=== PATIENT | male | born 1940 | race Caucasian/White ===

== ENCOUNTER 2022-12-10 16:35 | Inpatient (IN) | payer MEDICARE, BC, SELFPAY ==
[2022-12-10] VITALS (20 sets, daily range): BP systolic 128–162; BP diastolic 67–87; PULSE 70–93; RESP 15–31; TEMP 36.6; O2SAT 96–100; BMI 21.0; BMI 20.5
--- NOTE | 2022-12-10 16:45 | ED.GENADUL1 ---
Documented by User: Nedra Elizabeth 12/12/22 12:46 HPI - General Adult General Chief complaint: Weakness Stated complaint: WEAKNESS Time Seen by Provider: 12/10/22 16:41 Source: other Source information: MEDIC Mode of arrival: ambulance Limitations: altered mental status Limitations comment: pt unable to answer questions per medic this is pt's baseline History of Present Illness HPI narrative: patient has parkinson's and is not able to give adequate HPI or ROS. accompanied the patient and is the main historian She told me that the patient has been getting progressively weaker over the last few days. He has been eating and drinking a little less than normal the last two days. He had a mild cough as well that developed 2 days ago - no sputum production. No vomiting or diarrhea. She said that this morning he got up and had breakfast around 8 or 830am. he then went back to bed and slept until around 3pm. he went to use the toilet and was unable to stand and get off the toilet unassisted. No recent injury or fall. He has a scab on his right forehead that he picks at chronically, she told me. Related Data Home Medications Medication Instructions Recorded Confirmed aspirin 81 mg chewable tablet 81 mg PO DAILY 12/10/22 12/10/22 donepezil 10 mg tablet 10 mg PO DAILY 12/10/22 12/10/22 ferrous sulfate 325 mg (65 mg 325 mg PO DAILY 12/10/22 12/10/22 iron) tablet (Feosol) megestrol 40 mg tablet 100 mg PO DAILY 12/10/22 12/11/22 carbidopa ER 25 mg-levodopa 100 mg 2 tab PO QID 12/11/22 12/11/22 tablet,extended release entacapone 200 mg tablet 200 mg PO QID 12/11/22 12/11/22 Allergies Allergy/AdvReac Type Severity Reaction Status Date / Time Penicillins Allergy Intermediate Verified 12/10/22 17:06 [facility] Medical History (Updated 12/11/22 @ 16:41 by Shaikh Susanna MD) Surgical History (Updated 12/10/22 @ 21:59 by Abida Rivera RN) Family History (Updated 12/10/22 @ 22:00 by Abida Rivera RN) Mother Family history of hypertension Social History (Updated 12/10/22 @ 22:01 by Abida Rivera RN) Within the past year, how often did you have a drink containing alcohol: never Score interpretation: A score less than 4 is consistent with normal alcohol consumption. Smoking status: Former smoker Non-prescribed substance use: denies use Are you now , , , , never or living with a partner: Gender Identity: male Exam Narrative Exam Narrative: Nurses notes and vital signs reviewed and patient is not hypoxic. afebrile General: Well-appearing and in no apparent distress. Skin: Warm, dry, no pallor noted. No rash. Head: Normocephalic, atraumatic. He has a forehead scab and some surrounding scarring but no erythema or sign of infection. Neck: Supple, non-tender. Eye: Pupils are equal, round and EOMI. No scleral icterus. Ears, Nose, Mouth, and Throat: TM are clear, no nasal mucosal hypertrophy. Oral mucosa is dry, no posterior oropharynx erythema, uvula is mid-line Cardiovascular: Regular Rate and Rhythm without murmur, gallop or rub. Respiratory: No accessory muscle use or respiratory distress. Lungs are clear to auscultation, no wheezing, rales or rhonchi Chest Wall: no tenderness, crepitus or subcutaneous emphysema Back: No midline thoracic or lumbar vertebral tenderness. No CVA tenderness Musculoskeletal: no calf or popliteal tenderness, no lower extremity edema/swelling. moves extremities weakly GI: Abdomen is soft, non-distended. Normal bowel sounds. No masses appreciated. No tenderness to palpation. No rebound, guarding, or rigidity noted. Neurological: Awake and alert but I cannot understand what he is saying as he quietly whispers. No cranial nerve dysfunction observed. No truncal ataxia but he quickly lays back on the bed once he is sat up. Moves all extremities but does not follow commands. Sensation intact. Psychiatric: Cooperative and interactive. Normal mood and affect. Constitutional Vital Signs, click to edit/add: Last Vital Signs Temp 98.1 F 12/12/22 04:54 Pulse 64 12/12/22 12:05 Resp 20 12/12/22 04:54 BP 156/80 H 12/12/22 09:37 Pulse Ox 94 L 12/12/22 04:54 O2 Del Method Room Air 12/12/22 04:54 Course Vital Signs Vital signs: Vital Signs Pulse Rate 83 12/10/22 16:36 Respiratory Rate 18 12/10/22 16:36 Blood Pressure 152/69 H 12/10/22 16:36 Pulse Oximetry 96 12/10/22 16:36 Oxygen Delivery Method Room Air 12/10/22 16:36 Temperature 98.1 F 12/12/22 04:54 Pulse Rate 64 12/12/22 12:05 Respiratory Rate 20 12/12/22 04:54 Blood Pressure 156/80 H 12/12/22 09:37 Pulse Oximetry 94 L 12/12/22 04:54 Oxygen Delivery Method Room Air 12/12/22 04:54 Medical Decision Making MDM Narrative Medical decision making narrative: Patient was placed on manager monitoring and EKG obtained. Blood drawn and sent for evaluation. urine obtained and sent for testing. CXR obtained. Questionable opacity and loops of bowel in the way of the left hemidaphragm. CT recommended by radiologist and was ordered. Patient signed out to Dr Burk to follow up with Ct result and determine disposition. Lab Data Lab results reviewed: Yes I reviewed the patient's lab results Labs: Lab Results 12/10/22 12/10/22 Range/Units 17:15 17:40 WBC 5.8 (4.0-11.0) 10^3/uL RBC 4.25 L (4.70-6.10) 10^6/uL Hgb 13.2 L (14.0-18.0) g/dL Hct 40.9 L (42.0-54.0) % MCV 96.2 H (80.0-94.0) fL MCH 31.1 (25.9-34.0) pg MCHC 32.3 (29.9-35.2) g/dL RDW 13.2 (11.0-15.0) % Plt Count 180 (150-450) 10^3/uL MPV 9.7 (9.5-13.5) fL Neut % (Auto) 76.0 H (43.0-75.0) % Lymph % (Auto) 12.0 L (20.5-60.0) % [place] % (Auto) 9.6 (1.7-12.0) % Eos % (Auto) 1.4 (0.9-7.0) % Baso % (Auto) 0.7 (0.2-2.0) % Neut # (Auto) 4.4 (1.4-6.5) 10^3/uL Lymph # (Auto) 0.7 L (1.2-3.8) 10^3/uL [place] # (Auto) 0.6 (0.3-0.8) 10^3/uL Eos # (Auto) 0.1 (0.0-0.7) 10^3/uL Baso # (Auto) 0.0 (0.0-0.1) 10^3/uL Abs Immat Gran (auto) 0.02 (0.00-0.03) 10^3/uL Imm/Tot Granulo (auto) 0.3 (0.0-0.5) % Sodium 140 (136-145) mmol/L Potassium 3.9 (3.5-5.1) mmol/L Chloride 105 (98-107) mmol/L Carbon Dioxide 29.9 (21.0-32.0) mmol/L Anion Gap 9.0 BUN 45.0 H (7.0-18.0) mg/dL Creatinine 1.15 (0.70-1.30) mg/dL Est GFR ( Amer) >60 (>=60) Est GFR (Non-Af Amer) >60 (>=60) BUN/Creatinine Ratio 39.1 Glucose 122 H (74-106) mg/dL Calcium 8.9 (8.5-10.1) mg/dL Total Bilirubin 0.8 (0.2-1.0) mg/dL AST 10 L (15-37) U/L ALT 9 L (16-63) U/L Alkaline Phosphatase 62 (46-116) U/L Troponin I High Sens 8.9 (4.0-76.1) pg/mL Total Protein 6.9 (6.4-8.2) g/dL Albumin 3.8 (3.4-5.0) g/dL Globulin 3.1 g/dL Albumin/Globulin Ratio 1.2 Urine Color Yellow (YELLOW) Urine Clarity Clear (CLEAR) Urine pH 5.5 (5.0-9.0) Ur Specific [place] >=1.030 A (1.005-1.025) Urine Protein 100 A (NEG/TRACE) mg/dL Urine Glucose (UA) Negative (NEGATIVE) mg/dL Urine Ketones 15 A (NEGATIVE) mg/dL Urine Occult Blood Negative (NEGATIVE) Urine Nitrite Negative (NEGATIVE) Urine Bilirubin Negative (NEGATIVE) Urine Urobilinogen 1.0 (0.2-1.0) EU/dL Ur Leukocyte Esterase Negative (NEGATIVE) Urine RBC 2-5 A (0-2) #/HPF Urine WBC None seen (NONE SEEN) #/HPF Ur Squamous Epith Cells Rare (NONE/RARE) #/LPF Urine Crystals None seen (None Seen) #/HPF Urine Bacteria Trace A (NONE SEEN) #/HPF Urine Casts Seen A (NONE SEEN) #/LPF Hyaline Casts Rare Urine Mucus Trace A (NONE SEEN) Ur Culture Indicated? No Imaging Data Chest x-ray: Radiologist's impression: Patient Name: OLIMPIA RYDER MRN: [id number] date: 1940 Sex: M Assigned Patient Location: ER Current Patient Location: ER Accession/Order Number: [id number] Exam Date: 12/10/2022 17:48 Report Date: 12/10/2022 18:51 At the request of: NEDRA ELIZABETH Procedure: XR chest 1V CXR HISTORY: Patient unable to get off toilet. Patient weak and not eating. 82-year-old male COMPARISON: Chest x-ray 06/26/2022 TECHNIQUE: 1 view chest submitted for review. FINDINGS: There is eventration of the left hemidiaphragm approximated by bowel which is incompletely imaged. Underlying opacity in the right lung not excluded. The cardiac silhouette measures within normal. Pulmonary vascularity is unremarkable. Osseous structures and a straight degenerative change with osteopenia.. IMPRESSION: 1. Eventration of the left hemidiaphragm approximated by bowel which is incompletely imaged. 2. Underlying opacity in the right lung not excluded. Please correlate with patient's medical history. CT scan of the chest may help better delineate. Electronically authenticated by: CASSI GREER Date: 12/10/2022 18:51 ECG Data Attestation: I personally reviewed and interpreted this ECG as follows: Interpretation: EKG interpretation: Emergency Department physician interpretation. Normal sinus rhythm at 84bpm. Normal axis, normal intervals and non-specific T wave changes without ST segment elevation or depression. Discharge Plan Discharge Chief Complaint: Weakness Clinical Impression: Generalized muscle weakness Pulmonary embolism Qualifiers: Pulmonary embolism type: single subsegmental (without acute cor pulmonale) Qualified Code(s): I26.93 - Single subsegmental pulmonary embolism without acute cor pulmonale Patient Disposition: Admitted As Inpatient Time of Disposition Decision: 21:04 Condition: Good Discharge Date/Time: 12/10/22 21:49 Documented by User: Sue Burk MD 12/11/22 00:45 HPI - General Adult General Chief complaint: Weakness Stated complaint: WEAKNESS Time Seen by Provider: 12/10/22 16:41 Related Data Home Medications Medication Instructions Recorded Confirmed aspirin 81 mg chewable tablet 81 mg PO DAILY 12/10/22 12/10/22 donepezil 10 mg tablet 10 mg PO DAILY 12/10/22 12/10/22 ferrous sulfate 325 mg (65 mg 325 mg PO DAILY 12/10/22 12/10/22 iron) tablet (Feosol) megestrol 40 mg tablet 100 mg PO DAILY 12/10/22 12/11/22 carbidopa ER 25 mg-levodopa 100 mg 2 tab PO QID 12/11/22 12/11/22 tablet,extended release entacapone 200 mg tablet 200 mg PO QID 12/11/22 12/11/22 Allergies Allergy/AdvReac Type Severity Reaction Status Date / Time Penicillins Allergy Intermediate Verified 12/10/22 17:06 [facility] Medical History (Updated 12/11/22 @ 16:41 by Shaikh Susanna MD) Surgical History (Updated 12/10/22 @ 21:59 by Abida Rivera RN) Family History (Updated 12/10/22 @ 22:00 by Abida Rivera, JOSI) Mother Family history of hypertension Social History (Updated 12/10/22 @ 22:01 by Abida Rivera, JOSI) Within the past year, how often did you have a drink containing alcohol: never Score interpretation: A score less than 4 is consistent with normal alcohol consumption. Smoking status: Former smoker Non-prescribed substance use: denies use Are you now , , , , never or living with a partner: Gender Identity: male Exam Constitutional Vital Signs, click to edit/add: Last Vital Signs Temp 98.1 F 12/12/22 04:54 Pulse 64 12/12/22 12:05 Resp 20 12/12/22 04:54 BP 156/80 H 12/12/22 09:37 Pulse Ox 94 L 12/12/22 04:54 O2 Del Method Room Air 12/12/22 04:54 Course Vital Signs Vital signs: Vital Signs Pulse Rate 83 12/10/22 16:36 Respiratory Rate 18 12/10/22 16:36 Blood Pressure 152/69 H 12/10/22 16:36 Pulse Oximetry 96 12/10/22 16:36 Oxygen Delivery Method Room Air 12/10/22 16:36 Temperature 98.1 F 12/12/22 04:54 Pulse Rate 64 12/12/22 12:05 Respiratory Rate 20 12/12/22 04:54 Blood Pressure 156/80 H 12/12/22 09:37 Pulse Oximetry 94 L 12/12/22 04:54 Oxygen Delivery Method Room Air 12/12/22 04:54 Medical Decision Making MDM Narrative Medical decision making narrative: Patient was placed on manager monitoring and EKG obtained. Blood drawn and sent for evaluation. urine obtained and sent for testing. CXR obtained. Questionable opacity and loops of bowel in the way of the left hemidaphragm. CT recommended by radiologist and was ordered. Patient signed out to Dr Burk to follow up with Ct result and determine disposition. Dr Burk : The patient a CT angio showed that he have a right upper pulmonary embolism his kidney function is within normal and he will be started on Lovenox The patient case was discussed with Dr. Woody and she agrees with above plan and the patient be admitted for further management of his PE Lab Data Labs: Lab Results 12/10/22 12/10/22 Range/Units 17:15 17:40 WBC 5.8 (4.0-11.0) 10^3/uL RBC 4.25 L (4.70-6.10) 10^6/uL Hgb 13.2 L (14.0-18.0) g/dL Hct 40.9 L (42.0-54.0) % MCV 96.2 H (80.0-94.0) fL MCH 31.1 (25.9-34.0) pg MCHC 32.3 (29.9-35.2) g/dL RDW 13.2 (11.0-15.0) % Plt Count 180 (150-450) 10^3/uL MPV 9.7 (9.5-13.5) fL Neut % (Auto) 76.0 H (43.0-75.0) % Lymph % (Auto) 12.0 L (20.5-60.0) % [place] % (Auto) 9.6 (1.7-12.0) % Eos % (Auto) 1.4 (0.9-7.0) % Baso % (Auto) 0.7 (0.2-2.0) % Neut # (Auto) 4.4 (1.4-6.5) 10^3/uL Lymph # (Auto) 0.7 L (1.2-3.8) 10^3/uL [place] # (Auto) 0.6 (0.3-0.8) 10^3/uL Eos # (Auto) 0.1 (0.0-0.7) 10^3/uL Baso # (Auto) 0.0 (0.0-0.1) 10^3/uL Abs Immat Gran (auto) 0.02 (0.00-0.03) 10^3/uL Imm/Tot Granulo (auto) 0.3 (0.0-0.5) % Sodium 140 (136-145) mmol/L Potassium 3.9 (3.5-5.1) mmol/L Chloride 105 (98-107) mmol/L Carbon Dioxide 29.9 (21.0-32.0) mmol/L Anion Gap 9.0 BUN 45.0 H (7.0-18.0) mg/dL Creatinine 1.15 (0.70-1.30) mg/dL Est GFR ( Amer) >60 (>=60) Est GFR (Non-Af Amer) >60 (>=60) BUN/Creatinine Ratio 39.1 Glucose 122 H (74-106) mg/dL Calcium 8.9 (8.5-10.1) mg/dL Total Bilirubin 0.8 (0.2-1.0) mg/dL AST 10 L (15-37) U/L ALT 9 L (16-63) U/L Alkaline Phosphatase 62 (46-116) U/L Troponin I High Sens 8.9 (4.0-76.1) pg/mL Total Protein 6.9 (6.4-8.2) g/dL Albumin 3.8 (3.4-5.0) g/dL Globulin 3.1 g/dL Albumin/Globulin Ratio 1.2 Urine Color Yellow (YELLOW) Urine Clarity Clear (CLEAR) Urine pH 5.5 (5.0-9.0) Ur Specific [place] >=1.030 A (1.005-1.025) Urine Protein 100 A (NEG/TRACE) mg/dL Urine Glucose (UA) Negative (NEGATIVE) mg/dL Urine Ketones 15 A (NEGATIVE) mg/dL Urine Occult Blood Negative (NEGATIVE) Urine Nitrite Negative (NEGATIVE) Urine Bilirubin Negative (NEGATIVE) Urine Urobilinogen 1.0 (0.2-1.0) EU/dL Ur Leukocyte Esterase Negative (NEGATIVE) Urine RBC 2-5 A (0-2) #/HPF Urine WBC None seen (NONE SEEN) #/HPF Ur Squamous Epith Cells Rare (NONE/RARE) #/LPF Urine Crystals None seen (None Seen) #/HPF Urine Bacteria Trace A (NONE SEEN) #/HPF Urine Casts Seen A (NONE SEEN) #/LPF Hyaline Casts Rare Urine Mucus Trace A (NONE SEEN) Ur Culture Indicated? No Discharge Plan Discharge Chief Complaint: Weakness Clinical Impression: Generalized muscle weakness Pulmonary embolism Qualifiers: Pulmonary embolism type: single subsegmental (without acute cor pulmonale) Qualified Code(s): I26.93 - Single subsegmental pulmonary embolism without acute cor pulmonale Patient Disposition: Admitted As Inpatient Time of Disposition Decision: 21:04 Condition: Good Discharge Date/Time: 12/10/22 21:49
--- NOTE | 2022-12-10 16:50 | ECG_ITS ---
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
[2022-12-10] MEDS: 0.9 % SODIUM CHLORIDE 1,000 ML 999 ML IV (17:05)
--- NOTE | 2022-12-10 17:19 | PC.NURSE ---
Straight catheter successful, patient tolerated well, light yellow colored urine retrieved and sent to lab. at the bedside with knowledge of call button.
--- NOTE | 2022-12-10 17:23 | XR_ITS ---
The [address] [address] Patient Name: OLIMPIA RYDER MRN: [id number] date: 1940 Sex: M Assigned Patient Location: ER Current Patient Location: ER Accession/Order Number: [id number] Exam Date: 12/10/2022 17:48 Report Date: 12/10/2022 18:51 At the request of: NEDRA ELIZABETH Procedure: XR chest 1V CXR HISTORY: Patient unable to get off toilet. Patient weak and not eating. 82-year-old male COMPARISON: Chest x-ray 06/26/2022 TECHNIQUE: 1 view chest submitted for review. FINDINGS: There is eventration of the left hemidiaphragm approximated by bowel which is incompletely imaged. Underlying opacity in the right lung not excluded. The cardiac silhouette measures within normal. Pulmonary vascularity is unremarkable. Osseous structures and a straight degenerative change with osteopenia.. XR/XR chest 1V IMPRESSION: 1. Eventration of the left hemidiaphragm approximated by bowel which is incompletely imaged. 2. Underlying opacity in the right lung not excluded. Please correlate with patient's medical history. CT scan of the chest may help better delineate. Electronically authenticated by: CASSI GREER Date: 12/10/2022 18:51
[2022-12-10 17:28] LABS: Bilirubin Urine NEGATIVE (NEGATIVE); Blood Urine NEGATIVE (NEGATIVE); Clarity Urine CLEAR (CLEAR); Color Urine YELLOW (YELLOW); Glucose Urine UA NEGATIVE (NEGATIVE); Ketones Urine 15 mg/dL (NEGATIVE); Leukocyte Esterase Urine NEGATIVE (NEGATIVE); Nitrite Urine NEGATIVE (NEGATIVE); Protein Urine 100 mg/dL (NEG/TRACE); Specific Gravity Urine >=1.030 (1.005-1.025); pH Urine 5.5 (5.0-9.0)
[2022-12-10 17:31] LABS: Urine Microscopic Indicated YES
[2022-12-10 17:42] LABS: Bacteria Urine TRACE #/HPF (NONE SEEN); Mucus Urine TRACE (NONE SEEN); WBC Urine NONE SEEN #/HPF (NONE SEEN)
[2022-12-10 17:43] LABS: Cast Seen? SEEN #/LPF (NONE SEEN); Crystals Seen? None Seen #/HPF (None Seen); Hyaline Casts Urine RARE; Squamous Epithelial Cell Urine RARE #/LPF (NONE/RARE); Urine Culture Indicated NO
[2022-12-10 17:46] LABS: Basophils Percent Auto 0.7 % (0.2-2.0); Eosinophils Absolute Auto 0.1 10^3/uL (0.0-0.7); Eosinophils Percent Auto 1.4 % (0.9-7.0); Hematocrit 40.9 % (42.0-54.0); Hemoglobin 13.2 g/dL (14.0-18.0); Immature Granulocytes Abs Auto 0.02 10^3/uL (0.00-0.03); Immature Granulocytes Pct Auto 0.3 % (0.0-0.5); Lymphocytes Absolute Auto 0.7 10^3/uL (1.2-3.8); Mean Corpuscular HGB Conc 32.3 g/dL (29.9-35.2); Mean Corpuscular Hemoglobin 31.1 pg (25.9-34.0); Mean Corpuscular Volume 96.2 fL (80.0-94.0); Mean Platelet Volume 9.7 fL (9.5-13.5); Monocytes Absolute Auto 0.6 10^3/uL (0.3-0.8); Monocytes Percent Auto 9.6 % (1.7-12.0); Neutrophils Absolute Auto 4.4 10^3/uL (1.4-6.5); Platelet Count 180 10^3/uL (150-450); Red Blood Count 4.25 10^6/uL (4.70-6.10); Red Cell Distribution Width 13.2 % (11.0-15.0); White Blood Count 5.8 10^3/uL (4.0-11.0)
[2022-12-10 18:17] LABS: Troponin I High Sensitivity 8.9 pg/mL (4.0-76.1)
[2022-12-10 18:26] LABS: Alanine Aminotransferase 9 U/L (16-63); Albumin Globulin Ratio 1.2; Albumin Level 3.8 g/dL (3.4-5.0); Alkaline Phosphatase 62 U/L (46-116); Aspartate Amino Transferase 10 U/L (15-37); BUN Creatinine Ratio 39.1; Bilirubin Total 0.8 mg/dL (0.2-1.0); Calcium 8.9 mg/dL (8.5-10.1); Carbon Dioxide 29.9 mmol/L (21.0-32.0); Chloride 105 mmol/L (98-107); Estimated GFR (African America >60 (>=60); Estimated GFR (Non-African Ame >60 (>=60); Globulin 3.1 g/dL; Glucose 122 mg/dL (74-106); Potassium 3.9 mmol/L (3.5-5.1); Sodium 140 mmol/L (136-145); Total Protein 6.9 g/dL (6.4-8.2)
--- NOTE | 2022-12-10 18:59 | CT_ITS ---
[address] [address] Patient Name: OLIMPIA RYDER MRN: [id number] date: 1940 Sex: M Assigned Patient Location: ER Current Patient Location: Accession/Order Number: [id number] Exam Date: 12/10/2022 19:35 Report Date: 12/10/2022 20:35 At the request of: NEDRA ELIZABETH Procedure: CT angio chest CT ANGIOGRAM THORACIC AORTA: INDICATION: Weakness, lung opacity. COMPARISON: None available. TECHNIQUE: Helical CT angiography was performed of the thoracic aorta after the administration of intravenous contrast. Noncontrast imaging was not performed. MIP (maximum intensity projection) images were performed. Dose reduction techniques were achieved by using automated exposure control and/or adjustment of mA and/or kV according to patient size and/or use of iterative reconstruction technique. FINDINGS: THORACIC AORTA: The thoracic aorta is normal in course and caliber, with no evidence of dissection. PULMONARY ARTERIES: There is a small filling defect within the right upper lobe pulmonary artery segmental branch (series 11, image 56). The remaining pulmonary arteries are patent. HEART/PERICARDIUM: The heart is normal in size. No pericardial effusion. MEDIASTINAL/HILAR LYMPH NODES: No lymphadenopathy. ESOPHAGUS: There is mild distention of the proximal to mid esophagus. PLEURAL CAVITY: No pleural effusion or pneumothorax. LUNGS/AIRWAYS: There is subsegmental atelectasis in the left lower lobe. CHEST WALL/AXILLA/LOWER NECK: Unremarkable. VISUALIZED UPPER ABDOMEN: There is severe elevation of the left hemidiaphragm with fluid distention of the stomach. This results in mediastinal shift to the right. Moderate to severe atrophy of the pancreas. BONES: There is bony demineralization. Thoracic spine spondylosis. CT/CT angio chest IMPRESSION: 1. Small filling defect in the right upper lobe pulmonary artery segment compatible with pulmonary embolism. 2. Normal caliber thoracic aorta without dissection. 3. Severe elevation of the left hemidiaphragm with subsegmental atelectasis in the left lower lobe. This results in mediastinal shift to the right. 4. Mild to moderate dilatation of the proximal to mid esophagus. Critical results were NOTIFIED by TELEPHONE BY Dr. Naima Moeller MD to Dr. soria At 12/10/2022 8:34 PM EDT. Electronically authenticated by: NAIMA MOELLER Date: 12/10/2022 20:35
[2022-12-10] MEDS: ENOXAPARIN SODIUM 80 MG/0.8 ML SYRINGE 70 MG SUBQ (21:36)
[2022-12-11] VITALS (17 sets, daily range): BP systolic 96–179; BP diastolic 66–83; PULSE 60–97; RESP 18; TEMP 36.6–36.8; O2SAT 93–97; BMI 20.5
--- NOTE | 2022-12-11 00:58 | W.PM.TELEPN ---
Progress Note: Subjective Subjective Interval history: The patient is an 82-year-old male with a history of Parkinson's disease, who apparently had some generalized weakness and confusion today. He was brought in by his . He did complain of some right calf tenderness. He was found to be hypoxic. He underwent a CT of the chest which shows pulmonary embolism. He was given full-strength Lovenox in the ED and is being admitted for further evaluation. The patient or the denies him staying in bed for long periods of time, recent travel or any recent surgeries. Exam Constitutional Vital Signs, click to edit/add: Last Vital Signs Temp 97.9 F 12/10/22 22:16 Pulse 60 12/11/22 00:03 Resp 18 12/10/22 22:16 BP 162/87 H 12/10/22 22:16 Pulse Ox 96 12/10/22 22:16 O2 Del Method Room Air 12/10/22 22:16 Progress Note: Objective Labs Labs: Short CBC 12/10/22 Range/Units 17:40 WBC 5.8 (4.0-11.0) 10^3/uL Hgb 13.2 L (14.0-18.0) g/dL Hct 40.9 L (42.0-54.0) % Plt Count 180 (150-450) 10^3/uL BMP 12/10/22 17:40 Sodium 140 Potassium 3.9 Chloride 105 Carbon Dioxide 29.9 BUN 45.0 H Creatinine 1.15 Glucose 122 H Calcium 8.9 Liver Function 12/10/22 Range/Units 17:40 Total Bilirubin 0.8 (0.2-1.0) mg/dL AST 10 L (15-37) U/L ALT 9 L (16-63) U/L Alkaline Phosphatase 62 (46-116) U/L Albumin 3.8 (3.4-5.0) g/dL Urine 12/10/22 Range/Units 17:15 Urine Color Yellow (YELLOW) Urine Clarity Clear (CLEAR) Urine pH 5.5 (5.0-9.0) Ur Specific [place] >=1.030 A (1.005-1.025) Urine Protein 100 A (NEG/TRACE) mg/dL Urine Glucose (UA) Negative (NEGATIVE) mg/dL Progress Note: A&P Assessment and Plan (1) Pulmonary embolism: Plan The patient is an 82-year-old male with above medical problems, presenting with pulmonary embolism. Pulmonary embolism -Provide supportive care -Full-strength Lovenox twice daily -Check duplex lower extremity -Check echocardiogram to look for RV strain -Can change to oral anticoagulant in a.m. Accelerated hypertension -Hydralazine IV as needed Mild dementia -Continue Aricept Parkinson disease -Continue Sinemet DVT Prophylaxis -Lovenox, Medication review -Medication reconciliation form completed Goals of care -Full code Communications -Discussed with the emergency room physician -Discussed with the bedside nurse -Patient and updated of plan of care, all questions answered to their satisfaction Disposition -Home when medically stable Telemedicine clause -As the provider of this telehealth evaluation, requested by the patient's evaluating physician, I attest that I introduced myself to the patient, provided my credentials and determined that telemedicine via a real-time, two-way interactive audio and video platform is an appropriate and effective means of providing this service. -I reviewed the patient's chart and had a discussion with the member of the patient's treatment team. -The patient and I mutually agreed with continuation of this evaluation via telemedicine. The patient consented for the telemedicine evaluation. -This virtual encounter was taken place from [place], [place]. The encounter was approximately 35 minutes. The nurse was present during the entire time of the encounter and was able to remove the stethoscope and appropriate directions. The patient was evaluated at [facility]. Telemedicine Attestation Telemedicine Attestation I conducted this encounter from [] via secure live, [id number] video conference with the patient, located at [facility] with []. Prior to the interview, the risks and benefits of telemedicine were discussed with the patient and verbal consent was obtained.
[2022-12-11] MEDS: ENOXAPARIN SODIUM 80 MG/0.8 ML SYRINGE 70 MG SUBQ ×2 (02:24→20:14)
--- NOTE | 2022-12-11 03:53 | RESP.RT ---
No PRN breathing tx given. Pt sleeping. No respiratory distress noted.
[2022-12-11] MEDS: HYDRALAZINE HCL 20 MG/ML VIAL 10 MG IVP (04:52)
[2022-12-11] MEDS: CARBIDOPA/LEVODOPA 25 MG-100 MG TABLET 2 TAB PO ×3 (06:06→18:11)
[2022-12-11] MEDS: IPRATROPIUM/ALBUTEROL SULFATE 3 ML AMPUL.NEB IH (06:45)
--- NOTE | 2022-12-11 06:54 | PC.NURSE ---
patient was turned and repositioned in bed and became short of breath. auscultated lungs, there were fine crackles in the posterior bases. respiratory therapy was called and they completed a breathing treatment as ordered PRN. Dr. Mullins notified of patient's change in condition, no response back from doctor at this time.
--- NOTE | 2022-12-11 10:20 | DIETREC ---
Nutrition Recommendations: 1. Change diet to Mechanical Soft Chopped, no nutrient restrictions.
--- NOTE | 2022-12-11 10:46 | SWNOTE1 ---
SW met with , pt was lethargic at the time and was trying to wake him up to have him takes meds. SW to check back later. SW went with doctor in the room. Doctor had a long discussion about some testing results and what family would like to pursue in regards to treatment. Pt's is going to talk with her son and pt's asked if doctor could call her son as well to discuss. Doctor will call once family discusses. SW to check back in later.
[2022-12-11] MEDS: SODIUM CHLORIDE 0.45 % 1,000 ML 75 ML IV ×2 (11:39→23:55)
--- NOTE | 2022-12-11 13:37 | CM.NOTE ---
Rounds made with Dr. Mullins. Dr Mullins spoke to and patient about options regarding more GI workup and whether they wanted to pursue this. wants to discuss more with pt and sons and will let Dr know. PT/OT/Speech ordered.
--- NOTE | 2022-12-11 13:38 | SWNOTE1 ---
SW checked back in with pt's to see if she spoke to her son. Pt's has not yet, she went home to get a few things and is now trying to feed pt. She will call him soon.
--- NOTE | 2022-12-11 16:20 | P.HP_ITS ---
H&P: HPI History of Present Illness Chief complaint: Generalized weakness, cough, SOB. Narrative: 82 y o male lives at home with his , was brought in for generalized weakness. reports that for past one year there has been a gradual decline in patients physical health, functional status but for past few days, he has appeared withdrawn, tired, with poor PO intake, intermittent confusion. She also noticed increasing SOB and cough. No fever,chills. Patient last evening could not get up from the toilet seat due to weakness and was brought into ED. On w/u, patient noted to have small PE and was admitted for anticoagulation. This morning when I evaluated him he appeared comfortable and in no acute di stress. I could not obtain any meaningful information from him due to confusion. He appeared confused, drowsy and seems like has had poor PO intake and as a result weight loss over past few months from it. Had rigidity, tremors and restricted mobility due to parkinson, confusion and generalized weakness. Review of Systems ROS Status of ROS unobtainable due to medical condition and unobtainable due to mental status [facility] Medical History (Updated 12/11/22 @ 16:41 by Shaikh Susanna MD) Surgical History (Updated 12/10/22 @ 21:59 by Abida Rivera RN) Family History (Updated 12/10/22 @ 22:00 by Abida Rivera, JOSI) Mother Family history of hypertension Social History (Updated 12/10/22 @ 22:01 by Abida Rivera, JOSI) Within the past year, how often did you have a drink containing alcohol: never Score interpretation: A score less than 4 is consistent with normal alcohol consumption. Smoking status: Former smoker Non-prescribed substance use: denies use Are you now , , , , never or living with a partner: Gender Identity: male Meds Home Medications and Allergies Home Medications Medication Instructions Recorded Confirmed Type aspirin 81 mg chewable tablet 81 mg PO DAILY 12/10/22 12/10/22 History donepezil 10 mg tablet 10 mg PO DAILY 12/10/22 12/10/22 History ferrous sulfate 325 mg (65 mg 325 mg PO DAILY 12/10/22 12/10/22 History iron) tablet (Feosol) megestrol 40 mg tablet 100 mg PO DAILY 12/10/22 12/11/22 History carbidopa ER 25 mg-levodopa 100 mg 2 tab PO QID 12/11/22 12/11/22 History tablet,extended release entacapone 200 mg tablet 200 mg PO QID 12/11/22 12/11/22 History Allergies Allergy/AdvReac Type Severity Reaction Status Date / Time Penicillins Allergy Intermediate Verified 12/10/22 17:06 Exam Constitutional Vital Signs, click to edit/add: Last Vital Signs Temp 97.9 F 12/11/22 13:45 Pulse 77 12/11/22 16:03 Resp 18 12/11/22 13:45 BP 96/66 12/11/22 13:45 Pulse Ox 97 12/11/22 13:45 O2 Del Method Room Air 12/11/22 13:45 Documenting provider has reviewed patient's vital signs: yes Common normals: no apparent distress General appearance: lethargic, ill appearing and frail appearing Nutritional appearance: underweight Orientation/consciousness: Yes confused and Yes lethargic HENMT Common normals: normocephalic and head/scalp atraumatic Head and scalp: other (Bi temporal wasting) Eye Common normals: conjunctivae normal and no scleral icterus Conjunctiva: conjunctiva(e) normal Respiratory Common normals: normal respiratory effort and clear to auscultation bilaterally Effort & inspection: able to speak in complete sentences and decreased respiratory effort Auscultation: clear to auscultation bilaterally and diminished lung sounds Cardio Common normals: regular rate, S1 normal heart sound and S2 normal heart sound Rate: regular rate Heart sounds: S1 normal and S2 normal GI Common normals: Normal to inspection, nondistended, normoactive bowel sounds present, soft to palpation, non-tender and no hepatosplenomegaly Palpation: soft and no hepatosplenomegaly Extremity Common normals: no clubbing, cyanosis or edema Neuro [place] Coma Scale: document GCS findings [place] coma scale eye opening: Spontaneous [place] coma scale verbal response: Confused [place] coma scale motor response: Obey commands [place] coma scale total score: 14 Common normals: oriented x3, moves all extremities and no focal motor deficits Sensorium/orientation: somnolent and fluctuating sensorium Meningeal signs: no meningeal signs Speech: speech normal Other: Tremors, ridgidity and bradykinesia noted b/l Psych Common normals: denies hallucinations and denies homicidal ideation Attitude: calm Speech: slow Mood and affect: flat affect Attention/concentration: attention grossly impaired Memory/cognition: cognition grossly intact Results Labs Labs: Short CBC 12/10/22 Range/Units 17:40 WBC 5.8 (4.0-11.0) 10^3/uL Hgb 13.2 L (14.0-18.0) g/dL Hct 40.9 L (42.0-54.0) % Plt Count 180 (150-450) 10^3/uL BMP 12/10/22 17:40 Sodium 140 Potassium 3.9 Chloride 105 Carbon Dioxide 29.9 BUN 45.0 H Creatinine 1.15 Glucose 122 H Calcium 8.9 Liver Function 12/10/22 Range/Units 17:40 Total Bilirubin 0.8 (0.2-1.0) mg/dL AST 10 L (15-37) U/L ALT 9 L (16-63) U/L Alkaline Phosphatase 62 (46-116) U/L Albumin 3.8 (3.4-5.0) g/dL Urine 12/10/22 Range/Units 17:15 Urine Color Yellow (YELLOW) Urine Clarity Clear (CLEAR) Urine pH 5.5 (5.0-9.0) Ur Specific [place] >=1.030 A (1.005-1.025) Urine Protein 100 A (NEG/TRACE) mg/dL Urine Glucose (UA) Negative (NEGATIVE) mg/dL Assessment and Plan Assessment and Plan (1) Pulmonary embolism: Assessment and Plan: Small PE. No hypoxia, hemodynamic instability. On therapeutic Lovenox. C/w same. Will d/c once medically stable on DOACs Qualifiers: Pulmonary embolism type: single subsegmental (without acute cor pulmonale) Qualified Code(s): I26.93 - Single subsegmental pulmonary embolism without acute cor pulmonale (2) Dehydration determined by examination: Assessment and Plan: Clinically dry on exam. On IVF 1/2 NS as little to no PO intake. Swallow eval. 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 Poor functional status with progressive decline. On Carbidopa/levedopa and entacapone. Generally confused with intermittent worsening of his mental status Tremors, bradykinesia and generalized weakness. (4) Dysphagia: Assessment and Plan: likely due to parkinson and advanced age. Speech and swallow eval. Qualifiers: Dysphagia type: oropharyngeal phase Qualified Code(s): R13.12 - Dysphagia, oropharyngeal phase (5) Failure to thrive in adult: Assessment and Plan: Poor PO intake, not getting adequate caloric intake. Weight loss over past few months. Gradual decline in physical health, functional status. D/w and educated her on his clinical condition. She will d/w her son and decide on goals of care. (6) Severe protein-calorie malnutrition: Assessment and Plan: Weight loss, poor PO intake, bitemporal wasting and muscle wasting. Speech and swallow eval On megestrol for appetite stimulation. (7) Abnormal CT scan, chest: Assessment and Plan: Proximally dilated esophagus. Possible esophagial mass ? D/w . She is not sure about pursuing an EGD. Plan Changed to inpatient status as I anticipate him to need 2-3 days of hospital stay. He is clinically dry with oropharyngeal dysphagia with little to no PO intake. He is on IVF for it. Depending on swallow evaluation, and family's preference, he might end up needing EGD, PEG tube placement to allow him to have adequate nutrition safely.
--- NOTE | 2022-12-11 16:22 | SWNOTE1 ---
BYRON spoke with daughter and he is making pt inpt as of today. SW to re-address discharge plans on Wednesday.
[2022-12-11] MEDS: HALOPERIDOL LACTATE 5 MG/ML VIAL 2.5 MG IV (20:26)
[2022-12-11] MEDS: CEFTRIAXONE 1,000 MG in 0.9 % SODIUM CHLORIDE 50 ML 100 MG IV (20:30)
[2022-12-12] VITALS (12 sets, daily range): BP systolic 121–177; BP diastolic 66–95; PULSE 54–90; RESP 14–20; TEMP 36.5–36.7; O2SAT 94–96
[2022-12-12 05:06] LABS: Basophils Percent Auto 0.4 % (0.2-2.0); Eosinophils Absolute Auto 0.2 10^3/uL (0.0-0.7); Eosinophils Percent Auto 2.3 % (0.9-7.0); Hematocrit 37.8 % (42.0-54.0); Hemoglobin 12.5 g/dL (14.0-18.0); Immature Granulocytes Abs Auto 0.02 10^3/uL (0.00-0.03); Immature Granulocytes Pct Auto 0.3 % (0.0-0.5); Lymphocytes Percent Auto 15.1 % (20.5-60.0); Mean Corpuscular HGB Conc 33.1 g/dL (29.9-35.2); Mean Corpuscular Hemoglobin 31.2 pg (25.9-34.0); Mean Corpuscular Volume 94.3 fL (80.0-94.0); Monocytes Absolute Auto 0.6 10^3/uL (0.3-0.8); Monocytes Percent Auto 8.9 % (1.7-12.0); Platelet Count 157 10^3/uL (150-450); Red Blood Count 4.01 10^6/uL (4.70-6.10); White Blood Count 6.9 10^3/uL (4.0-11.0)
[2022-12-12 05:18] LABS: Anion Gap 11.9; BUN Creatinine Ratio 28.6; Calcium 8.5 mg/dL (8.5-10.1); Carbon Dioxide 24.8 mmol/L (21.0-32.0); Chloride 106 mmol/L (98-107); Estimated GFR (African America >60 (>=60); Estimated GFR (Non-African Ame >60 (>=60); Glucose 94 mg/dL (74-106); Potassium 3.7 mmol/L (3.5-5.1); Sodium 139 mmol/L (136-145)
[2022-12-12] MEDS: HYDRALAZINE HCL 20 MG/ML VIAL 10 MG IVP (06:03)
[2022-12-12] MEDS: ENOXAPARIN SODIUM 80 MG/0.8 ML SYRINGE 70 MG SUBQ ×2 (09:12→21:31)
--- NOTE | 2022-12-12 10:50 | PT.DAILY ---
Physical Therapy Daily Note PT Daily Note/Assess Start: 12/12/22 10:47 Freq: Status: Active Protocol: Document 12/12/22 10:48 COLETTE (Rec: 12/12/22 10:50 COLETTE [id number]) Physical Therapy Daily Note/Assessment Time In/Time Out Time In 10:30 Time Out 10:40 Pain In Pain Unresponsive Pain Out Pain Unresponsive Subjective Subjective Attempted 2x to see pt this morning. He does not open eyes or respond much for either attempts. is present. OK'd PROM while pt remains in supine. Therapeutic Exercise Time Therapeutic Exercise Minutes (minutes) 8 Therapeutic Exercise Units 1 Therapeutic Exercise Treatment Therapeutic Exercise Treatment PROM to bilat LE's to maintain mobility/reduce stiffness. Remains supine with call light in reach and present. Total Physical Therapy Time Total Therapy Minutes 8 Total Physical Therapy Units 1 Summary Daily Note Summary Lethargic/unresponsive this morning which limits PT session.
[2022-12-12] MEDS: SODIUM CHLORIDE 0.45 % 1,000 ML 75 ML IV (13:23)
--- NOTE | 2022-12-12 15:28 | PM.IMPN1 ---
Progress Note: A&P Assessment and Plan (1) Pulmonary embolism: Assessment and Plan: Small PE. On Lovenox for it. Can d/c on DOACS. Qualifiers: Pulmonary embolism type: single subsegmental (without acute cor pulmonale) Qualified Code(s): I26.93 - Single subsegmental pulmonary embolism without acute cor pulmonale (2) Dehydration determined by examination: Assessment and Plan: No PO intake. Confused,lethargic. 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 Currently confused, lethargic, not eating/drinking. (4) Dysphagia: Assessment and Plan: Speech/swallow evaluation was not possible due to patients refusal/inabilty to follow commands. Qualifiers: Dysphagia type: oropharyngeal phase Qualified Code(s): R13.12 - Dysphagia, oropharyngeal phase (5) Failure to thrive in adult: Assessment and Plan: No PO intake, weight loss. Discussed goals of care with family today (6) Severe protein-calorie malnutrition: (7) Abnormal CT scan, chest: Assessment and Plan: Patient is now hospice. (8) Advanced care planning/counseling discussion: Assessment and Plan: Advanced care planning discussion with and son who was on a phone call. Educated, informed them of patient's clinical status, comorbid conditions and inquired patient's wishes if he communicated in the past about them or not Family would like to take him home. They do not want him to get PEG tube. Son mentioned that he has had previous episodes in the past when he stops eating/drinking for days. This has been happening more frequently. Code status d/w family. Patient made DNR CC Hospice consulted. RN will reach out to [facility]. Possible d/c tomorrow until hospice evaluation and logistics have been sorted. Internal Medicine - PN: Subj Subjective Interval history: Seen and examined. Minimally responsive. Not eating/drinking. Appears comfortable and does not seem to be in pain Exam Constitutional Vital Signs, click to edit/add: Last Vital Signs Temp 98 F 12/12/22 14:00 Pulse 83 12/12/22 14:00 Resp 14 12/12/22 14:00 BP 158/67 H 12/12/22 14:00 Pulse Ox 96 12/12/22 14:00 O2 Del Method Room Air 12/12/22 14:00 Documenting provider has reviewed patient's vital signs: yes Common normals: no apparent distress General appearance: lethargic, ill appearing and frail appearing Nutritional appearance: underweight Orientation/consciousness: Yes confused and Yes lethargic HENMT Common normals: normocephalic and head/scalp atraumatic Head and scalp: other (Bi temporal wasting) Eye Common normals: conjunctivae normal and no scleral icterus Conjunctiva: conjunctiva(e) normal Respiratory Common normals: normal respiratory effort and clear to auscultation bilaterally Effort & inspection: decreased respiratory effort Auscultation: clear to auscultation bilaterally and diminished lung sounds Cardio Common normals: regular rate, S1 normal heart sound and S2 normal heart sound Rate: regular rate Heart sounds: S1 normal and S2 normal GI Common normals: Normal to inspection, nondistended, normoactive bowel sounds present, soft to palpation, non-tender and no hepatosplenomegaly Palpation: soft and no hepatosplenomegaly Extremity Common normals: no clubbing, cyanosis or edema Neuro [place] Coma Scale: document GCS findings [place] coma scale eye opening: Spontaneous [place] coma scale verbal response: Confused [place] coma scale motor response: Localising [place] coma scale total score: 13 Common normals: oriented x3, moves all extremities and no focal motor deficits Sensorium/orientation: lethargic, somnolent and fluctuating sensorium Meningeal signs: no meningeal signs Speech: speech normal Other: Tremors, ridgidity and bradykinesia noted b/l Psych Common normals: denies hallucinations and denies homicidal ideation Attitude: calm Speech: slow Mood and affect: flat affect Attention/concentration: attention grossly impaired Memory/cognition: cognition grossly intact Internal Medicine - PN: Obj Da Labs Labs: Laboratory Results - last 24 hr 12/12/22 04:19 WBC 6.9 RBC 4.01 L Hgb 12.5 L Hct 37.8 L MCV 94.3 H MCH 31.2 MCHC 33.1 RDW 13.0 Plt Count 157 MPV 10.0 Neut % (Auto) 73.0 Lymph % (Auto) 15.1 L [place] % (Auto) 8.9 Eos % (Auto) 2.3 Baso % (Auto) 0.4 Neut # (Auto) 5.0 Lymph # (Auto) 1.0 L [place] # (Auto) 0.6 Eos # (Auto) 0.2 Baso # (Auto) 0.0 Abs Immat Gran (auto) 0.02 Imm/Tot Granulo (auto) 0.3 Sodium 139 Potassium 3.7 Chloride 106 Carbon Dioxide 24.8 Anion Gap 11.9 BUN 20.0 H Creatinine 0.70 Est GFR ( Amer) >60 Est GFR (Non-Af Amer) >60 BUN/Creatinine Ratio 28.6 Glucose 94 Calcium 8.5 Urinary Catheter Management Urinary Catheter Management Straight: Cath placed during this visit: yes Urethral indwelling: No Reason for continuing: acute urinary retention Insertion date: 12/10/22 Insertion time: 17:18
[2022-12-12] MEDS: DONEPEZIL HCL 10 MG TABLET PO (15:42)
[2022-12-12] MEDS: CARBIDOPA/LEVODOPA 25 MG-100 MG TABLET 2 TAB PO (15:43)
[2022-12-12] MEDS: CEFTRIAXONE 1,000 MG in 0.9 % SODIUM CHLORIDE 50 ML 100 MG IV (19:22)
[2022-12-13] MEDS: SODIUM CHLORIDE 0.45 % 1,000 ML 75 ML IV ×2 (02:34→15:50)
[2022-12-13 05:07] LABS: Basophils Percent Auto 0.6 % (0.2-2.0); Eosinophils Absolute Auto 0.2 10^3/uL (0.0-0.7); Hematocrit 38.7 % (42.0-54.0); Hemoglobin 12.8 g/dL (14.0-18.0); Immature Granulocytes Abs Auto 0.02 10^3/uL (0.00-0.03); Immature Granulocytes Pct Auto 0.4 % (0.0-0.5); Lymphocytes Absolute Auto 0.7 10^3/uL (1.2-3.8); Lymphocytes Percent Auto 13.8 % (20.5-60.0); Mean Corpuscular HGB Conc 33.1 g/dL (29.9-35.2); Mean Corpuscular Hemoglobin 31.4 pg (25.9-34.0); Mean Corpuscular Volume 94.9 fL (80.0-94.0); Mean Platelet Volume 10.3 fL (9.5-13.5); Monocytes Absolute Auto 0.5 10^3/uL (0.3-0.8); Monocytes Percent Auto 10.2 % (1.7-12.0); Neutrophils Absolute Auto 3.7 10^3/uL (1.4-6.5); Platelet Count 153 10^3/uL (150-450); Red Blood Count 4.08 10^6/uL (4.70-6.10); Red Cell Distribution Width 13.1 % (11.0-15.0); White Blood Count 5.2 10^3/uL (4.0-11.0)
[2022-12-13 05:28] LABS: Anion Gap 11.4; BUN Creatinine Ratio 23.8; Calcium 8.2 mg/dL (8.5-10.1); Carbon Dioxide 23.9 mmol/L (21.0-32.0); Chloride 106 mmol/L (98-107); Estimated GFR (African America >60 (>=60); Estimated GFR (Non-African Ame >60 (>=60); Glucose 97 mg/dL (74-106); Potassium 3.3 mmol/L (3.5-5.1); Sodium 138 mmol/L (136-145)
[2022-12-13 06:00] VITALS: BP 171/81; PULSE 84; RESP 20; TEMP 37.3; O2SAT 92
[2022-12-13] MEDS: CARBIDOPA/LEVODOPA 25 MG-100 MG TABLET 2 TAB PO ×3 (06:15→17:54)
[2022-12-13] MEDS: ENOXAPARIN SODIUM 80 MG/0.8 ML SYRINGE 70 MG SUBQ ×2 (10:21→20:30)
[2022-12-13] MEDS: MEGESTROL ACETATE 400 MG/10 ML ORAL.SUSP 40 MG PO (10:23)
[2022-12-13] MEDS: ASPIRIN 81 MG TAB.CHEW PO (10:30)
[2022-12-13] MEDS: FERROUS SULFATE 325 MG TABLET PO (10:30)
[2022-12-13] MEDS: DONEPEZIL HCL 10 MG TABLET PO (10:30)
[2022-12-13] MEDS: DOCUSATE SODIUM 100 MG CAPSULE PO (10:30)
[2022-12-13] MEDS: ACETAMINOPHEN 325 MG TABLET 650 MG PO (10:30)
--- NOTE | 2022-12-13 11:43 | P.DS_ITS ---
DS: Providers Provider Date of admission: 12/10/22 22:00 Primary care physician: Nazario Kaur MD Consults: 12/11/22 00:51 Physical Therapy Eval and Treat Routine Reason for consultation: weakness 12/11/22 10:30 Speech Therapy Eval and Treat Routine Reason for consultation: aspiration Has provider been notified: No 12/11/22 10:31 Occupational Therapy Eval and Treat Routine Reason for consultation: weakness Has provider been notified: No 12/12/22 15:27 Consult to Hospice Routine Reason for consultation: Parkinson Attending physician on discharge: Shaikh Susanna Discharging clinician: Shaikh Susanna Anticipated date of discharge: 12/13/22 DS: Diagnosis Discharge Diagnosis (1) Pulmonary embolism: Assessment and plan: Small PE. Can d/c on Eliquis. Qualifiers: Pulmonary embolism type: single subsegmental (without acute cor pulmonale) Qualified Code(s): I26.93 - Single subsegmental pulmonary embolism without acute cor pulmonale (2) Dehydration determined by examination: Assessment and plan: Due to poor PO intake, d/c home with hospice. 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 Patient to go home on hospice. (4) Dysphagia: Qualifiers: Dysphagia type: oropharyngeal phase Qualified Code(s): R13.12 - Dysphagia, oropharyngeal phase (5) Failure to thrive in adult: Assessment and plan: poor PO intake, weight loss. Now enrolled in hospice. (6) Severe protein-calorie malnutrition: (7) Abnormal CT scan, chest: DS: Summary Hospital Course Hospital Course: Patient brought in for generalized weakness, poor PO intake along with SOB x 2 days. W/u c/w small PE and was treated for it with Lovenox. Patient remained minimally awake, confused with little to no PO intake likely due to progression of his dementia/parkinson. He does that every so often and its not unlike him. Patients clinical status and goals of care d/w and his son. He was made DNR CC and hospice was consulted. He will first thing in the morning tomorrow Status at Discharge Functional status at discharge: bed bound Overall status at discharge: patient is not back to baseline Time Spent with Patient Time attestation: Total time spent providing and/or coordinating discharge services: Time spent: greater than 30 minutes Exam Constitutional Vital Signs, click to edit/add: Last Vital Signs Temp 99.1 F 12/13/22 06:00 Pulse 84 12/13/22 06:00 Resp 20 12/13/22 06:00 BP 171/81 H 12/13/22 06:00 Pulse Ox 92 L 12/13/22 06:00 O2 Del Method Room Air 12/13/22 06:00 Documenting provider has reviewed patient's vital signs: yes Common normals: no apparent distress General appearance: lethargic, ill appearing and frail appearing Nutritional appearance: underweight Orientation/consciousness: Yes confused and Yes lethargic HENMT Common normals: normocephalic and head/scalp atraumatic Head and scalp: other (Bi temporal wasting) Eye Common normals: conjunctivae normal and no scleral icterus Conjunctiva: conjunctiva(e) normal Respiratory Common normals: normal respiratory effort and clear to auscultation bilaterally Effort & inspection: decreased respiratory effort Auscultation: clear to auscultation bilaterally and diminished lung sounds Cardio Common normals: regular rate, S1 normal heart sound and S2 normal heart sound Rate: regular rate Heart sounds: S1 normal and S2 normal GI Common normals: Normal to inspection, nondistended, normoactive bowel sounds present, soft to palpation, non-tender and no hepatosplenomegaly Palpation: soft and no hepatosplenomegaly Extremity Common normals: no clubbing, cyanosis or edema Neuro [place] Coma Scale: document GCS findings [place] coma scale eye opening: Spontaneous [place] coma scale verbal response: Confused [place] coma scale motor response: Localising [place] coma scale total score: 13 Common normals: oriented x3, moves all extremities and no focal motor deficits Sensorium/orientation: lethargic, somnolent and fluctuating sensorium Meningeal signs: no meningeal signs Speech: speech normal Other: Tremors, ridgidity and bradykinesia noted b/l Psych Common normals: denies hallucinations and denies homicidal ideation Attitude: calm Speech: slow Mood and affect: flat affect Attention/concentration: attention grossly impaired Memory/cognition: cognition grossly intact DS: Data Data Completed and Pending Labs on day of discharge: Labs from last 24 hours 12/13/22 04:09 WBC 5.2 RBC 4.08 L Hgb 12.8 L Hct 38.7 L MCV 94.9 H MCH 31.4 MCHC 33.1 RDW 13.1 Plt Count 153 MPV 10.3 Neut % (Auto) 71.0 Lymph % (Auto) 13.8 L [place] % (Auto) 10.2 Eos % (Auto) 4.0 Baso % (Auto) 0.6 Neut # (Auto) 3.7 Lymph # (Auto) 0.7 L [place] # (Auto) 0.5 Eos # (Auto) 0.2 Baso # (Auto) 0.0 Abs Immat Gran (auto) 0.02 Imm/Tot Granulo (auto) 0.4 Sodium 138 Potassium 3.3 L Chloride 106 Carbon Dioxide 23.9 Anion Gap 11.4 BUN 20.0 H Creatinine 0.84 Est GFR ( Amer) >60 Est GFR (Non-Af Amer) >60 BUN/Creatinine Ratio 23.8 Glucose 97 Calcium 8.2 L Discharge Plan Discharge Disposition: Hospice - Home Condition: Good Discharge Medications: New Eliquis 5 mg tablet 5 mg PO BID Qty: 60 0RF Continued ferrous sulfate [Feosol] 325 mg (65 mg iron) tablet 325 mg PO DAILY megestrol 40 mg tablet 100 mg PO DAILY donepezil 10 mg tablet 10 mg PO DAILY aspirin 81 mg tablet,chewable 81 mg PO DAILY carbidopa-levodopa 25-100 mg tablet extended release 2 tab PO QID Rx Instructions: 2 tabs at 0600, 2 tabs at 1000, 2 tabs at 1400 and 2 tabs at 1800 entacapone 200 mg tablet 200 mg PO QID Rx Instructions: administer at the same time as l-dopa/carbidopa dose Activity: increase activity as tolerated Diet: advance to your usual diet Forms: Portal Instructions
[2022-12-13 14:57] VITALS: BP 140/66; PULSE 78; RESP 20; TEMP 36.6; O2SAT 97
[2022-12-13] MEDS: CEFTRIAXONE 1,000 MG in 0.9 % SODIUM CHLORIDE 50 ML 100 MG IV (20:30)
[2022-12-14] MEDS: HALOPERIDOL LACTATE 5 MG/ML VIAL IM (00:19)
--- NOTE | 2022-12-14 00:37 | PC.NURSE ---
patient was becoming agitated, aggressive, and combative. pt pulled out his IV, and was trying to climb out of the bed. RN and SHEET [employer]ICATOR unable to re-orient patient. Attempted to have pt take Seroquel that was ordered PRN for agitation. Pt refused to take the medication. Nursing supervisor telephone information and physician were made aware of the situation. RN administered Haldol as ordered. Then the nurses repositioned the patient in bed. he is now resting comfortably with his call light in reach. is also at bedside.
[2022-12-14 00:47] VITALS: BP 135/80; PULSE 81; RESP 18; O2SAT 96
[2022-12-14 04:32] VITALS: BP 147/83; PULSE 72; RESP 16; TEMP 36.6; O2SAT 97
[2022-12-14 08:00] VITALS: RESP 18
--- NOTE | 2022-12-14 09:25 | SWNOTE1 ---
SW reviewed notes from weekend and family signed on with hospice. SW to check which hospice. SW to also find out about transport home today.
--- NOTE | 2022-12-14 09:55 | CM.NOTE ---
Rounds made with lam Pacheco for discharge to home today with Hospice.
--- NOTE | 2022-12-14 10:31 | CM.NOTE ---
Important Message From [employer] discussed with , she verbalizes understanding and signs paper. Original given to pt and copy placed on pt's chart.
--- NOTE | 2022-12-14 10:44 | SWNOTE1 ---
SW spoke with pt's in room, she would like SW to try and get transport her earlier to get him home. SW to call [facility]. Pt's then found SW in hallway and has decided now that she wants to keep transport for 4:30 with [facility]. Pt is going home with [facility].
[2022-12-14 14:07] VITALS: BP 158/81; PULSE 75; RESP 20; TEMP 36.9; O2SAT 94
== END 2022-12-14 17:15 | disposition hospice, home (50) | DRG 175 ==
LOC: ER 21:05 → MS 12-11 00:49
PROVIDERS: Admitting Provider Internal Medicine; Emergency Provider Emergency Medicine; PCP Surgery; Visit Provider Internal Medicine
DX: I26.93 Single subsegmental thrombotic pulmonary embolism without acute cor pulmonale (principal); E43 Unspecified severe protein-calorie malnutrition; E86.0 Dehydration; G20 Parkinson's disease; F02.80 Dementia in other diseases classified elsewhere, unspecified severity, without behavioral disturbance, psychotic disturbance, mood disturbance, and anxiety; R13.12 Dysphagia, oropharyngeal phase; R62.7 Adult failure to thrive; K22.89 Other specified disease of esophagus; Z68.20 Body mass index [BMI] 20.0-20.9, adult; Z87.891 Personal history of nicotine dependence; Z79.82 Long term (current) use of aspirin; Z79.899 Other long term (current) drug therapy; Z66 Do not resuscitate
CPT/HCPCS: 36415; 51701; 71045; 71275; 80048; 80053; 81001; 84484; 85025; 92610; 93005; 94640; 96361; 96365; 96366; 96372; 96375; 96376; 97110; 97162; 97165; 97530; 99285; G0378; Q3014; Q9967